=== PATIENT | male | born 1990 | race Caucasian/White ===

== ENCOUNTER → 2020-12-10 | Day surgery (SDC) | payer OTHER ==
[~2020-12-10] VITALS: Ht 182.9 cm; Wt 118.0 kg
[~2020-12-10] MED LIST: ADAL40PE SQ; LIDOCAINE 1%/EPI 1:100,000 20 ML VIAL. INJ ONE
[2020-12-10 08:28] VITALS: BP 132/96
--- NOTE | 2020-12-10 10:17 | PDOC ---
SURGICAL PROGRESS NOTE DATE: 12/10/20 TIME: 10:16 No change in dictated H&P Vital Signs Vital Signs Date Time Temp Pulse Resp B/P (MAP) Pulse Ox O2 Delivery O2 Flow Rate FiO2 12/10/20 08:28 75 20 97 Justicifation of Admission Dx: Justifications for Admission: Justification of Admission Dx: Yes BONY CORONA MD Dec 10, 2020 10:17
--- NOTE | 2020-12-10 10:21 | PDOC ---
SURGICAL PROGRESS NOTE DATE: 12/10/20 TIME: 10:18 Op Note: Surgeon.........................................Felix Pre op diag.....................................multiple skin tumors Post op diag...................................tumor right occiput and right forearm Anesthesia.....................................1% lidocaine with epi Procedure......................................excision mass scalp and forearm both right Drains...........................................none Blood loss......................................10cc Fluids...........................................none Condition......................................satisfactory Vital Signs Vital Signs Date Time Temp Pulse Resp B/P (MAP) Pulse Ox O2 Delivery O2 Flow Rate FiO2 12/10/20 08:28 75 20 97 Justicifation of Admission Dx: Justifications for Admission: Justification of Admission Dx: Yes BONY CORONA MD Dec 10, 2020 10:20
--- NOTE | 2020-12-10 10:36 | PREOP HP ---
DATE OF SERVICE: 12/10/2020 HISTORY OF PRESENT ILLNESS: The patient is referred by Dr. See because of skin tumors. The medical history shows that he has had these tumors for a long time, one on his right forearm and he thinks all have been getting larger. They get caught on things and sometimes hurt when he elias his hair and/or hits the arm lesion on something. He has had surgery he thinks as an for some type of inguinal or umbilical hernia, he is not certain. PAST SURGICAL HISTORY: No other surgery. ALLERGIES: Has no allergies. PAST MEDICAL HISTORY: Has psoriasis, for which he takes Humira. MEDICATIONS: He takes no other medications and has no allergies as stated before. FAMILY HISTORY: Negative for such tumors. REVIEW OF SYSTEMS: Negative except for the history and physical where he shows that he has had hit these lesions on his arm and has trouble combing his hair because he hits them and sometimes they will bleed. PHYSICAL EXAMINATION: GENERAL: Shows an alert male in no acute distress. HEENT: Grossly normal except for the lesions of the head. He had a large lesion at the occiput on the right side, which was about 3.5-4 cm in size. This was on the scalp and had another one in the parietal area that was about 2 cm, one on the left scalp was about 2 cm. The lesion of the right scalp was unremarkable. CHEST AND HEART: Unremarkable and normal with no murmurs, heaves, friction rubs or thrills and the chest was clear bilaterally. EXTREMITIES: Negative except for the right arm where he had mid right forearm anteriorly, he has about a 3 cm mass of the skin, which is raised quite a bit above the skin, not bleeding and he states they have been getting larger. IMPRESSION: 1. Multiple tumors of the skin. 2. Psoriasis. KORINA/KAROLYN/CHERY DR: Lane TID: [id number] VIN
--- NOTE | 2020-12-10 11:32 | DISCH ---
DISCHARGE INSTRUCTIONS Condition on Discharge Condition on Discharge: Stable Activity After Discharge Activity Instructions for Disc: Activity as tolerated Diet after Discharge Additional Diet Restrictions: as pre op Wound Incision Care Other wound/incision instructi: keep wounds clean and dry Follow-Up Follow up with: make appt to see me in 10 days BONY CORONA MD Dec 10, 2020 11:32
--- NOTE | 2020-12-11 00:13 | OP ---
DATE OF SURGERY: 12/10/2020 PREOPERATIVE DIAGNOSIS: Mass of the occiput on the right side of the scalp and also mass, right mid forearm. DESCRIPTION OF PROCEDURE: The scalp lesion was done first. The lesion of the scalp was about 3.5 cm in size and it was inspected. The hair around it was divided. The mass was obviously in the skin and attached and as such at its base, we used a 15 blade after the area was anesthetized with Betadine solution and also anesthetized with 1% lidocaine and epinephrine and used ____. The area was draped in routine fashion. The 15 blade was used to make a fusiform incision transversely and carried down through the skin. The incision was probably 4-5 cm or more in size. We carried this to the skin. There was brisk bleeding and using Metzenbaum scissors, we excised the skin and the lesion and then sent it to pathology. Pressure was used to control bleeding and then we used cautery to get the 1-2 vessels that continued to bleed. We did undermine subcutaneous superiorly and caudad in the subcutaneous so there would be less tension on the wound. We used one #3-0 mattress suture in the middle to approximate the wound and then used more 3-0 silk sutures to close the skin laterally and medially to this. There was a good cosmetic result. The procedure was terminated and a sterile dressing was applied. Next, using new instruments, gloves and gowning again, we then inspected the arm lesion that was on the anterior aspect of the mid forearm. As such, a transverse incision was made in this area after it was prepped and draped with Betadine solution and anesthetized with 1% lidocaine with epinephrine. We used a 15 blade to incise the skin this and then slowly excised it, the mass, using Metzenbaum scissors from the underlying structure. The mas and margins were 3.5cm. Cautery was used for hemostasis and then 4-0 nylon in an interrupted fashion was used to approximate the wound. Tegaderm dressing was applied and the procedure was terminated. This lesion was smaller being about 2-3 cm in size. The procedures were now terminated as the dressings were applied. The blood loss total was about 10 mL. Fluids given were none. No drains were used and the condition of the patient was satisfactory as he was returned to the recovery room. KORINA/BUTCH DR: KORINA/shilpa TID: [id number] MTDEladio
--- NOTE | 2020-12-16 15:10 | PATHOLOGY ---
[facility] Accession Number: [id number] . 01 Material submitted: . PART A: scalp - RIGHT SCALP MASS. Modifiers: right PART B: arm - RIGHT ARM MASS. Modifiers: right . 01 Clinical history: . EXC. SCALP MASS AND RIGHT ARM MASS . 02 Diagnosis: A. Skin and subcutaneous tissue, right scalp mass excision: - Polypoid compound melanocytic nevus. . B. Skin and subcutaneous tissue, right arm mass excision: - Polypoid compound melanocytic nevus. . (JPM:christy; 12/16/2020) [facility] 12/16/2020 1211 Local . 02 Comment: There is no evidence of malignancy. (JPM:christy; 12/16/2020) . 02 Electronically signed: . Killian Kay MD, Pathologist NPI- [id number] . 01 Gross description: . A. Received in formalin labeled "Ferris, Kal and right scalp mass". Received is an un-oriented elliptical excision of pale vides skin measuring 2.0 x 1.3 and excised to 0.4 cm with a haired firm raised lesion measuring 2.0 x 2.0 x 0.8 cm. The surgical margin is inked black. Serial sectioning reveals firm white fibrous cut surfaces. The specimen is entirely submitted in cassettes A1-A8 (tips in A8). . B. Received in formalin labeled "Ferris, Kal and right arm mass". Received is a verrucous pale vides skin fragment measuring 1.6 x 1.6 x 1.0 cm. The surgical margin is inked black. Sectioning reveals firm vides-brown fibrous cut surfaces. The specimen is entirely submitted in cassettes B1-B4(BLJ; 12/15/2020) . [facility] 12/16/2020 1210 Local . 02 Pathologist provided ICD-10: D22.61 . 02 CPT . 234057, 507135 Specimen Comment: A courtesy copy of this report has been sent to [phone] Specimen Comment: [id number] Specimen Comment: Report sent to / DR ALMANZA Performed at: 01 [facility] [address] [place] [address] [address], [place] [id number] MD Tesfaye Blas MD Phone: [phone] Performed at: 02 [facility] [address] [place], [place] [id number] MD Killian Kay MD Phone: [phone]
--- NOTE | 2021-01-05 12:22 | PDOC ---
SURGICAL PROGRESS NOTE DATE: 01/05/21 TIME: 12:19 Scalp lesion 4cm in size with margins. Justicifation of Admission Dx: Justifications for Admission: Justification of Admission Dx: Yes BONY CORONA MD Jan 05, 2021 12:22
== END | disposition home or self-care (01) ==
LOC: SURG 07:56
PROVIDERS: ATTEND Specialist
DX: D22.61 Melanocytic nevi of right upper limb, including shoulder (principal); K21.9 Gastro-esophageal reflux disease without esophagitis; M19.90 Unspecified osteoarthritis, unspecified site; Z87.891 Personal history of nicotine dependence; Z72.89 Other problems related to lifestyle; Z98.890 Other specified postprocedural states
CPT/HCPCS: 11404; 11424; 88305; J3490

== ENCOUNTER → 2021-04-01 | Day surgery (SDC) | payer OTHER ==
[~2021-04-01] VITALS: Ht 175.3 cm; Wt 225.0 kg
[2021-04-01 10:28] VITALS: BP 124/78
--- NOTE | 2021-04-01 11:28 | PDOC ---
SURGICAL PROGRESS NOTE DATE: 04/01/21 TIME: 11:25 Op Note: Surgeon..................................................Felix Pre and post op diag.................................mass right and left scalp Anesthesia..............................................lo0cal 1% lidocaine with epi Procedure...............................................excision mass right and left scalp Blood loss...............................................5cc Drains....................................................none Fluids....................................................none Condition...............................................satisfactory Justicifation of Admission Dx: Justifications for Admission: Justification of Admission Dx: Yes BONY CORONA MD Apr 01, 2021 11:28
--- NOTE | 2021-04-01 12:44 | DISCH ---
DISCHARGE INSTRUCTIONS Condition on Discharge Condition on Discharge: Stable Activity After Discharge Activity Instructions for Disc: No restrictions, Activity as tolerated Bathing Instructions: Shower-keep dressing dry Diet after Discharge Additional Diet Restrictions: as pre op Wound Incision Care Other wound/incision instructi: keep wound dry and clean Follow-Up Follow up with: call and make appt to see me in 10-14 days Treatment/Equipment after DC Adaptive Equipment Issued: None BONY CORONA MD Apr 01, 2021 12:44
--- NOTE | 2021-04-01 20:20 | OP ---
DATE OF SURGERY: 04/01/2021 SURGEON: Lui Washington MD PREOPERATIVE DIAGNOSIS: Tumor of the right parietal scalp and tumor of the left occipital scalp. POSTOPERATIVE DIAGNOSIS: Tumor of the right parietal scalp and tumor of the left occipital scalp. ANESTHESIA: 1% lidocaine with epinephrine. PROCEDURE: Excision of 2 tumors of the scalp. TECHNIQUE: Under local anesthesia, the hair had been shaved off the parietal area, which was medial and posterior parietal area on the right. We made an incision in a fusiform fashion encompassing this lesion. We carried it down through the skin with a 15 blade after it had been anesthetized. We then used Metzenbaum scissors and also a 15 blade to excise the lesion from the underlying tissues and the subcutaneous. This lesion was 3 cm with a margin size of 5cm , the total incision with margins. There was brisk bleeding, controlled with suture ligature with 4-0 Vicryl and also cautery. The deeper structures were approximated using a 2-0 interrupted Vicryl and interrupted 2-0 nylon was used to approximate the skin. Dermabond was applied and the procedure was terminated. The occipital area was smaller being 1.5 cm with margin size of 4cm in size, the incision being 4cm. The area was likewise similarly prepped and draped and removed in absolute similar fashion as the other lesion. A 2-0 Vicryl was used to close the deep dermis and subcutaneous and 3-0 nylon was used in the skin in this area. The blood loss total was probably 6-8 mL. Fluids given, none. No drains were used and the condition of the patient was satisfactory as he has returned to the holding area. AUGUSTO DR: Lane TID: [id number] VIN
--- NOTE | 2021-04-03 18:22 | PATHOLOGY ---
[facility] Accession Number: [id number] . 01 Material submitted: . PART A: scalp - RIGHT PARIETAL SCALP MASS. Modifiers: right, parietal PART B: scalp - LEFT OCCIPITAL SCALP MASS. Modifiers: left, occipital . 01 Clinical history: . EXCISIONS SCALP MASS . 02 Diagnosis: A. Skin and subcutaneous tissue, right parietal scalp mass excision: - Polypoid intradermal melanocytic nevus, narrowly excised. . B. Skin and subcutaneous tissue, left occipital scalp mass excision: - Polypoid intradermal melanocytic nevus, excised. . (YU:christy; 04/03/2021) [facility] 04/03/2021 1251 Local . 02 Comment: There is no evidence of malignancy. (YU:christy; 04/03/2021) . 02 Electronically signed: . Killian Kay MD, Pathologist NPI- [id number] . 01 Gross description: . A. The specimen is received in formalin, labeled "Kal Ferris, right parietal scalp mass". Received is an ellipse of skin measuring 2.4 x 1.6 x 1.6 cm in greatest dimensions. The epidermal surface displays a well-defined, raised and pink-vides lesion measuring 1.5 x 1.5 x 0.6 cm. The surgical margin is inked. The specimen is sectioned into eight pieces and entirely submitted in cassettes A1 through A5, with the tips placed in cassette A5. . B. The specimen is received in formalin, labeled "Kal Ferris, left occipital scalp mass". Received is an ellipse of skin measuring 2.0 x 1.1 x 1.2 cm in greatest dimensions. The epidermal surface displays a well-defined, raised and pink-vides lesion measuring 1.1 x 1.1 x 0.6 cm. The surgical margin is inked. The specimen is sectioned into eight pieces and entirely submitted in cassettes B1 through B3, with the tips placed in cassette B3. (CAA; 04/02/2021) [facility] 04/02/2021 0909 Local . 02 Pathologist provided ICD-10: D22.4 . 02 CPT . 163038, [id number] Specimen Comment: A courtesy copy of this report has been sent to [phone] Specimen Comment: [id number] Specimen Comment: Report sent to / DR ALMANZA Performed at: 01 [facility] [address] [facility] [address], [place] [id number] MD Tesfaye Blas MD Phone: [phone] Performed at: 02 [facility] [address] [place], [place] [id number] MD Killian Kay MD Phone: [phone]
--- NOTE | 2021-04-13 11:22 | PREOP HP ---
DATE OF SERVICE: 04/01/2021 HISTORY OF PRESENT ILLNESS: The patient had had lesions removed from his scalp and arm previously and now wishes to have more removed. He has 2 on the left scalp. PAST MEDICAL HISTORY: Noncontributory. No high blood pressure, cancer, TB, asthma, no allergies. SOCIAL HISTORY: He does not smoke, drink or use illicit drugs. The lesions were benign before and we expect these to be benign. REVIEW OF SYSTEMS: Negative except for the lesions of the scalp, hurts, sometimes bleed when he elias his hair and brushes, have pain and tenderness and he wishes to have them removed. PHYSICAL EXAMINATION: GENERAL: Shows an alert male in no acute distress. HEAD, EYES, EARS, NOSE AND THROAT: Grossly normal except for the lesions, about a 3 cm lesion posterior parietal area and one more anterior on the left side. They are somewhat red, but not inflamed and not pedunculated. They are nontender. The remainder of the skin is grossly normal. CHEST: Not examined. HEART: Not examined. He has recently had history and physical and there has been no change. IMPRESSION: Masses of scalp. AYUSH/CHACORTA DR: Lane TID: [id number] MTDD
== END | disposition home or self-care (01) ==
LOC: SURG 10:29
PROVIDERS: ATTEND Specialist
DX: L72.0 Epidermal cyst (principal); D22.4 Melanocytic nevi of scalp and neck; K21.9 Gastro-esophageal reflux disease without esophagitis; M19.90 Unspecified osteoarthritis, unspecified site; Z87.891 Personal history of nicotine dependence; Z79.899 Other long term (current) drug therapy; Z98.890 Other specified postprocedural states
CPT/HCPCS: 21012; 88305; J3490